=== PATIENT | female | born 1950 | race Caucasian/White ===

== ENCOUNTER 2019-02-04 12:54 | Emergency (ER) | payer MEDICARE, BC, SELFPAY ==
[2019-02-04 13:00] VITALS: BP 150/96; PULSE 80; RESP 18; TEMP 36.6; O2SAT 99
--- NOTE | 2019-02-04 13:13 | DI.RAD_ITS ---
SYMPTOMS/DIAGNOSIS: TRAUMA PA AND LATERAL CHEST: No priors. The heart is normal in size. The lungs are clear. The mediastinal structures and pleura appear intact. CONCLUSION: Normal chest.
--- NOTE | 2019-02-04 13:13 | DI.CT_ITS ---
SYMPTOMS/DIAGNOSIS: TRAUMA CT BRAIN: Noncontrast examination. The ventricles and sulci are consistent with the patient's age. The ventricles are intact. The basilar cisterns are patent. No acute intracranial hemorrhage, infarct, midline shift or mass effect is identified. The visualized paranasal sinuses are clear. The mastoid air cells appear well pneumatized. The calvarium is intact. IMPRESSION: No acute intracranial process. CT SCAN OF THE CERVICAL SPINE: Multiple contiguous axial images of the cervical spine were obtained. Sagittal and coronal reformatted images were evaluated on the Siemens workstation. There is normal alignment of the cervical spine. No acute fractures or subluxations are seen. Moderate degenerative changes are seen throughout the cervical spine particularly at C 5 - 6 and C 6 - 7. The soft tissues are unremarkable. The lung apices are clear. IMPRESSION: No acute fracture or subluxation in the cervical spine. The findings were discussed with the emergency department on the date of the examination.
--- NOTE | 2019-02-04 13:49 | ED.GENADUL_ITS ---
Discharge Plan Disposition Patient Disposition: HOME Condition: Good Discharge Details Chief Complaint: HeadInjury Clinical Impression: Closed head injury with concussion, Fall from slipping on ice Primary Care Provider: Vianney,Local ED Provider: Phong Licea and New Rx's Prescriptions: Continued aspirin [Aspirin Low Dose] 81 mg Tablet,Delayed Release (Dr/Ec) 81 mg PO QAM RF: 0 simvastatin 20 mg Tablet 20 mg PO QAM RF: 0 hydrochlorothiazide 25 mg Tablet 25 mg PO QAM RF: 0 omega-3 fatty acids [Fish Oil Concentrate] 1,000 mg Capsule 200 mg PO QAM RF: 0 multivitamin Tablet 1 tab PO QAM RF: 0 calcium carbonate-vitamin D3 [Calcium 500 + D] 500 mg(1,250mg) -400 unit Tablet,Chewable 1 tab PO QAM RF: 0 folic acid 400 mcg Tablet PO QAM RF: 0 Tumeric RF: 0 Discharge Instructions Instructions: Concussion (ED), Head Injury (ED) Additional Instructions: Rest over the next few days. Avoid electronics and mental stimulation. Use Tylenol if needed for headache. Follow-up with your primary care doctor this week. Return to emergency department if significant change in mental status, persistent vomiting, worsening headache, any focal neurologic changes. Referrals: Primary Care Provider [Outside] Discharge Data Discharge Date/Time-TO BE ENTERED AT DEPARTURE: 02/04/19 14:42 Medical Decision Making Patient clearly with concussion and head injury. No obvious external trauma. Neurologically intact other than for amnesia and confusion. Spine is nontender. She has normal range of motion of the neck. She will require head CT and I will go ahead and get cervical spine just because of mechanism. Will obtain chest x-ray as well as she apparently landed on the upper back and head when she fell. Head and cervical spine scans are read as unremarkable without acute trauma per radiology. Chest x-ray is also unremarkable per radiology. Patient has been unchanged in neurologic status. She continues to have amnesia and repetitive questioning. She is non-focal otherwise. She has no bleed. She is on no blood thinners other than aspirin. She and her are from [place]. She should be fine for the ride back. She will need to follow-up with primary care in the next couple of days for reevaluation. Given head injury precautions and what to look for in requiring return to emergency department. HPI General Mode of arrival: wheelchair . Date/Time Provider Initiated Documentation: 02/04/19 13:13 . Limitations to Documentation: altered mental status . Information obtained by: patient and family . HPI Narrative: Patient is brought in by her for evaluation of head injury. Patient slipped and fell backwards onto the ice. She struck her head but was not knocked unconscious. She was dazed. She complains of headache. She has been repetitive in questioning and does not recall the event. She is brought in for evaluation. Patient does complain a headache. She denies neck or back pain. She denies difficulty breathing, nausea, vomiting. She has no numbness or weakness. She is repetitive in questioning and clearly has amnesia. She is on aspirin a day but no other blood thinners. Related Data Home Medications Medication Instructions Recorded Confirmed Tumeric 02/04/19 aspirin [Aspirin Low Dose] 81 mg PO QAM 02/04/19 02/04/19 calcium carbonate-vitamin D3 1 tab PO QAM 02/04/19 02/04/19 [Calcium 500 + D] folic acid PO QAM 02/04/19 hydrochlorothiazide 25 mg PO QAM 02/04/19 02/04/19 multivitamin 1 tab PO QAM 02/04/19 02/04/19 omega-3 fatty acids [Fish Oil 200 mg PO QAM 02/04/19 02/04/19 Concentrate] simvastatin 20 mg PO QAM 02/04/19 02/04/19 Allergies Allergy/AdvReac Type Severity Reaction Status Date / Time cephalexin [From Keflex] AdvReac Mild Diarrhea Unverified 02/04/19 14:21 General Stated Complaint: HeadInjury AKSHAT: 2 Review of Systems Constitutional Denies fever(s), Reports headache(s) and Denies weakness Eyes Denies change in vision ENT Denies dizziness, Denies facial pain, Reports headache(s), Denies epistaxis and Denies neck pain Cardiovascular Denies chest pain, Denies syncope and Denies dyspnea Respiratory Denies dyspnea Gastrointestinal Denies abdominal pain, Denies nausea and Denies vomiting Musculoskeletal Denies back pain, Denies neck pain and Denies numbness Integumentary/Breasts Denies wounds Neurologic Denies abnormal speech, Reports confusion, Denies dizziness, Denies syncope, Reports headache(s), Denies numbness, Denies convulsions and Denies weakness Psychiatric Reports confusion PFSH Medical History HTN (hypertension) (Chronic) Hypercholesterolemia (Chronic) Social History Smoking/Tobacco Use Status: Former Tobacco Use Substance use type: does not use Do you feel safe at home: Yes Do you feel safe in your relationship?: Yes Additional Social history: smoked in high school Exam Const General: cooperative and no acute distress Orientation: alert, oriented to person, oriented to place and confused [facility] Head: normocephalic, atraumatic, no lacerations and no palpable skull fracture Face and sinus: normal facial exam Neck Neck: full ROM, trachea midline and supple Chest Chest: no tenderness Resp Effort & Inspection: normal respiratory effort Auscultation: clear to auscultation bilaterally Cardio Rate: regular rate Rhythm: regular rhythm Heart Sounds: S1 normal and S2 normal GI Palpation: soft, not firm and nontender Back/Spine/Pelvis Cervical Spine: cervical ROM normal and No cervical spinal tenderness Thoracic/Lumbar Spine: thoraco-lumbar ROM normal, No thoracic spinal tenderness and No lumbar spinal tenderness Skin Trauma: no lacerations or abrasions Neuro General: alert, awake, oriented Patient Orientation: Person and Place, tone normal, no focal motor deficits, CN's II-XI intact bilaterally and confused Cognition: abnormal cognition (Repetitive questioning, anteriorgrade amnesia) Speech: speech normal Extrem General: normal to inspection and full ROM Course Vital Signs Temperature 97.9 F 02/04/19 13:00 Pulse 80 02/04/19 13:00 Respiratory Rate 18 02/04/19 13:00 Blood Pressure 150/96 H 02/04/19 13:00 Pulse Oximetry 99 02/04/19 13:00 Temperature 97.9 F 02/04/19 13:00 Temperature Source Skin 02/04/19 13:00 Pulse 80 02/04/19 13:00 Respiratory Rate 18 02/04/19 13:00 Blood Pressure 150/96 H 02/04/19 13:00 Pulse Oximetry 99 02/04/19 13:00 Oxygen Delivery Method Room Air 02/04/19 13:00 Oxygen Flow Rate 0 02/04/19 13:00 Pain Level 4 02/04/19 13:00
[2019-02-04 14:22] VITALS: BP 153/73; PULSE 73; RESP 16; O2SAT 98
[2019-02-04 14:34] VITALS: BP 150/69; PULSE 86; TEMP 36.6; O2SAT 99
[2019-02-04 14:39] VITALS: BP 150/69; PULSE 86; RESP 16; TEMP 36.6; O2SAT 99
== END 2019-02-04 14:42 | disposition home or self-care (01) ==
PROVIDERS: Emergency Provider Emergency Medicine
DX: S06.0X0A Concussion without loss of consciousness, initial encounter (principal); R41.1 Anterograde amnesia; W00.0XXA Fall on same level due to ice and snow, initial encounter
CPT/HCPCS: 99284; 70450; 71046; 72125